=== PATIENT | male | born 1980 | race Caucasian/White ===

== ENCOUNTER 2017-10-06 22:50 | Emergency (ER) | payer MEDICAID ==
[2017-10-06 23:35] VITALS: BP 121/83; PULSE 82; TEMP 98.5; O2SAT 98
[2017-10-07] MEDS ORDERED: Fluorescein 1 mg Ophthalmic Strip ONE (00:31)
[2017-10-07] MEDS ORDERED: Tobramycin 0.3% OPH OINT OD STA (01:04)
[2017-10-07] MEDS ORDERED: Tobramycin 0.3% OPH OINT ONE (01:06)
--- NOTE | 2017-10-07 01:06 | C.PDOC ---
History Of Present Illness 37 year old male presents to the ED c/o pain and redness to his right eye. Patient also reports moderate itching and swelling to his right eye. Patient states the he tried to remove his contact lens from his right eye 3 days ago but is unsure if the lens fell out of his eye or if it still present. Patient denies headache, nausea, vomit, blurry vision, trauma, injury, fall. Time Seen by Provider: 10/06/17 23:42 Chief Complaint (Nursing): Eye Problem History Per: Patient History/Exam Limitations: no limitations Onset/Duration Of Symptoms: Days (3) Current Symptoms Are (Timing): Still Present Quality: "Pain" Wears Contact Lens?: Yes Associated Symptoms: Pain, Swelling Recent travel outside of the [place]: No Additional History Per: Patient Past Medical History Reviewed: Historical Data, Nursing Documentation, Vital Signs Vital Signs: Last Vital Signs Temp 98.5 F 10/06/17 23:32 Pulse 82 10/06/17 23:32 Resp 20 10/07/17 01:11 BP 121/83 10/06/17 23:32 Pulse Ox 98 10/07/17 03:09 - Medical History PMH: No Chronic Diseases Denies: Chronic Kidney Disease Surgical History: No Surg Hx Family History: States: Unknown Family Hx - Social History Hx Alcohol Use: No Hx Substance Use: No - Immunization History Hx Tetanus Toxoid Vaccination: No Hx Influenza Vaccination: No Hx Pneumococcal Vaccination: No Review Of Systems Constitutional: Negative for: Fever, Chills Eyes: Positive for: Pain, Eyelid Inflammation, Redness Gastrointestinal: Negative for: Vomiting Neurological: Negative for: Headache, Dizziness Physical Exam - Physical Exam Appears: Non-toxic, No Acute Distress Skin: Normal Color, Warm, Dry Head: Atraumatic, Normacephalic Eye(s): bilateral: PERRL, EOMI, right: Eyelid Inflammation, Other (swelling periorbital area, moderate ciliary injection, conjuctival edema. corneal abrasion direclty over right pupil and conjuctival abrasion to mid lower conjuctival border) Ear(s): Bilateral: Normal Nose: No Discharge Oral Mucosa: Moist Throat: Normal, No Erythema, No Exudate Neck: Normal ROM, Supple Extremity: Normal ROM, No Tenderness, No Swelling Neurological/Psych: Oriented x3, Normal Speech Gait: Steady ED Course And Treatment O2 Sat by Pulse Oximetry: 98 (ON RA) Pulse Ox Interpretation: Normal Progress Note: Patient was applied tobradex solution and was given to him to apply and be used twice. Patient was advised to follow up with opthalmologist. Disposition Counseled Patient/Family Regarding: Diagnosis, Need For Followup, Rx Given - Disposition Referrals: Matthew Gann [Staff Provider] - Disposition: HOME/ ROUTINE Disposition Time: 01:05 Condition: STABLE Additional Instructions: Apply ointment to right eye as directed ( 2x daily for 5 days Follwo up with Eye doctor Return to ER if worse Prescriptions: Cetirizine HCl [Zyrtec] 10 mg PO DAILY #20 capsule Instructions: Corneal Abrasion (DC) Forms: [employer] (Serbian), School Excuse - Clinical Impression Clinical Impression: Corneal abrasion - PA / SCHOOL COOK / Resident Statement MD/DO has reviewed & agrees with the documentation as recorded. - Scribe Statement The provider has reviewed the documentation as recorded by the Scribe Merrick Mcmillan All medical record entries made by the Scribe were at my direction and personally dictated by me. I have reviewed the chart and agree that the record accurately reflects my personal performance of the history, physical exam, medical decision making, and the department course for this patient. I have also personally directed, reviewed, and agree with the discharge instructions and disposition.
[2017-10-07 01:11] VITALS: RESP 20
== END 2017-10-07 01:10 | disposition home or self-care (01) ==
LOC: C.ER 22:50
DX: S05.01XA Injury of conjunctiva and corneal abrasion without foreign body, right eye, initial encounter (principal); X58.XXXA Exposure to other specified factors, initial encounter

== ENCOUNTER 2017-11-20 10:00 | Emergency (ER) | payer MEDICAID ==
[2017-11-20] MEDS ORDERED: Tetanus/Diphtheria Toxoids 0.5 ml Syringe IM ONE (10:22)
--- NOTE | 2017-11-20 10:22 | C.PDOC ---
History Of Present Illness 37 year old male BIBA to ED whose history is limited due to clinical condition. Per EMS, EMS was called by patients family due to gross alcohol intoxication. Per EMS, "the mother did not want to deal with him anymore." Per EMS, patient was witnessed to be walking outside the house. 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 ( Marta Sanderson) History Per: EMS History/Exam Limitations: clinical condition Onset/Duration Of Symptoms: Hrs Current Symptoms Are (Timing): Still Present Modifying Factor(s): Alcohol Time Seen by Provider: 11/20/17 10:08 Chief Complaint (Nursing): Substance Abuse Past Medical History Reviewed: Historical Data, Nursing Documentation, Vital Signs - Medical History PMH: Denies: Chronic Kidney Disease Surgical History: No Surg Hx Family History: States: No Known Family Hx - Social History Hx Alcohol Use: Yes Hx Substance Use: No - Immunization History Hx Tetanus Toxoid Vaccination: No Hx Influenza Vaccination: No Hx Pneumococcal Vaccination: No Vital Signs: Last Vital Signs Temp 98.4 F 11/20/17 10:11 Pulse 104 H 11/20/17 13:51 Resp 16 11/20/17 13:51 BP 120/71 11/20/17 13:51 Pulse Ox 96 11/20/17 13:51 Review Of Systems Review Of Systems: ROS cannot be obtained secondary to pt's inabilty to answer questions. Physical Exam - Physical Exam Appears: Toxic, No Acute Distress Skin: Warm Head: Normacephalic, Abrasion (on top of scalp) Eye(s): bilateral: Normal Inspection Nose: Normal, Other (dry blood on nose and mouth ) Oral Mucosa: Moist Neck: Supple Chest: Symmetrical Cardiovascular: Rhythm Regular Respiratory: Normal Breath Sounds Gastrointestinal/Abdominal: Soft, No Tenderness Extremity: Other (No gross deformity. Abrasion to right elbow. ) Neurological/Psych: Other (Gross alcohol intoxication. Focal response to pain stimulus. ) ED Course And Treatment O2 Sat by Pulse Oximetry: 97 (RA) Pulse Ox Interpretation: Normal - CT Scan/US head Other Rad Studies (CT/US): Read By Radiologist, Radiology Report Reviewed CT/US Interpretation: FINDINGS: Study is limited by motion artifact. HEMORRHAGE: No acute parenchymal, subarachnoid or extra-axial hemorrhage. BRAIN: There appears to be some very minimal low-attenuation periventricular white matter changes nonspecific. No obvious parenchymal nor extra-axial mass or collection. Ventricular and sulcal size are within range of normal for this patient's stated age. VENTRICLES: No obstructive hydrocephalus. CALVARIUM: Calvarium intact however there is mild right frontal scalp swelling extends superiorly of to near the vertex. There is also mild right periorbital/ supraorbital soft tissue swelling. Age-indeterminate anterior nasal bone fracture. PARANASAL SINUSES: Unremarkable as visualized. No significant inflammatory changes. MASTOID AIR CELLS: Unremarkable as visualized. No inflammatory changes. OTHER FINDINGS: None. IMPRESSION: Limited motion degraded study. No acute intracranial hemorrhage. Suspect minimal chronic periventricular white matter low-attenuation changes nonspecific. Mild right periorbital soft tissue swelling extending superiorly into the frontal scalp. Age-indeterminate right-sided anterior nasal bone fracture. Progress - Data Reviewed Data Reviewed: Diagnostic imaging, Old records - Re-Evaluation Re-evaluation Note: Mother at bedside states patient does weekend drinking. Usually has frequent falls when he drinks. Patient PE unchanged. 11/20/17 11:23 (Marta Sanderson) Medical Decision Making Medical Decision Making: Impression: Alcohol intoxication with multiple superficial injury to head. Plan: * CT cervical spine * CT Head * Tenivac * Sobriety (Marta Sanderson) Disposition Counseled Patient/Family Regarding: Studies Performed, Diagnosis - Disposition Disposition Time: 13:00 - Disposition Condition: STABLE Forms: [employer] (Macanese) - Clinical Impression Clinical Impression: Minor head injury, Multiple abrasions, Alcohol intoxication - Scribe Statement The provider has reviewed the documentation as recorded by the Scribe - Scribe Statement Fernando Foley (Marta Sanderson) Provider Attestation: All medical record entries made by the Scribe were at my direction and personally dictated by me. I have reviewed the chart and agree that the record accurately reflects my personal performance of the history, physical exam, medical decision making, and the department course for this patient. I have also personally directed, reviewed, and agree with the discharge instructions and disposition. (Marta Sanderson) Physician Patient Turnover Patient Signed Over To: Latasha العراقي Handoff Comments: FU SOBRIETY, DISPO Addendum Addendum: 11/20/17 14:02 Patient sleeping comfortably, arousable to verbal stimuli. Pending sobriety. ( Latasha العراقي)
[2017-11-20] MEDS ORDERED: Tdap Vaccine 0.5 ml Vial (10-64 yrs) IM ONE (10:34)
--- NOTE | 2017-11-20 11:46 | CT ---
Date of service: 11/20/2017 PROCEDURE: CT HEAD WITHOUT CONTRAST. HISTORY: trauma COMPARISON: None available. TECHNIQUE: Axial computed tomography images were obtained through the head/brain without intravenous contrast. Radiation dose: Total exam DLP = 1905.03 mGy-cm. This CT exam was performed using one or more of the following dose reduction techniques: Automated exposure control, adjustment of the mA and/or kV according to patient size, and/or use of iterative reconstruction technique. FINDINGS: Study is limited by motion artifact HEMORRHAGE: No acute parenchymal, subarachnoid or extra-axial hemorrhage. BRAIN: There appears to be some very minimal low-attenuation periventricular white matter changes nonspecific. No obvious parenchymal nor extra-axial mass or collection. Ventricular and sulcal size are within range of normal for this patient's stated age VENTRICLES: No obstructive hydrocephalus. CALVARIUM: Calvarium intact however there is mild right frontal scalp swelling extends superiorly of to near the vertex. There is also mild right periorbital/supraorbital soft tissue swelling. Age-indeterminate anterior nasal bone fracture. PARANASAL SINUSES: Unremarkable as visualized. No significant inflammatory changes. MASTOID AIR CELLS: Unremarkable as visualized. No inflammatory changes. OTHER FINDINGS: None. IMPRESSION: Limited motion degraded study. No acute intracranial hemorrhage. Suspect minimal chronic periventricular white matter low-attenuation changes nonspecific. Mild right periorbital soft tissue swelling extending superiorly into the frontal scalp. Age-indeterminate right-sided anterior nasal bone fracture.
--- NOTE | 2017-11-20 11:53 | CT ---
Date of service: 11/20/2017 PROCEDURE: CT Cervical Spine without contrast HISTORY: TRAUMA COMPARISON: None available. TECHNIQUE: Axial computed tomography images were obtained of the cervical spine without the use of intravenous contrast. Coronal and sagittal reformatted images were created and reviewed. Radiation dose: Total exam DLP = 609.88 mGy-cm. This CT exam was performed using one or more of the following dose reduction techniques: Automated exposure control, adjustment of the mA and/or kV according to patient size, and/or use of iterative reconstruction technique. FINDINGS: VERTEBRAE: No fracture. Normal alignment. No destructive bony lesion. DISCS/SPINAL CANAL/NEURAL FORAMINA: Mild degenerative spondylosis seen at the C5-C6 level. Changes include disc space narrowing with mild minor endplate eburnation and small central and bilateral (left slightly larger than right) disc ridge complex that compresses the ventral surface of the thecal sac and spinal cord more so on the left side. The uncovertebral joints are mildly hypertrophic as well with bilateral foraminal narrowing. The the Minimal degenerative spondylosis noted at the C6-C7 level without significant canal nor foraminal compromise. PARASPINAL SOFT TISSUES: Unremarkable. OTHER FINDINGS: None. IMPRESSION: No acute fractures. Mild degenerative spondylosis most notably affecting the C5-C6 level as detailed above.
[2017-11-20 13:51] VITALS: RESP 16
[2017-11-20 15:07] VITALS: BP 125/87; PULSE 110; TEMP 98.3; O2SAT 97
== END 2017-11-20 15:16 | disposition home or self-care (01) ==
LOC: C.ER 10:00
DX: F10.129 Alcohol abuse with intoxication, unspecified (principal); Y90.9 Presence of alcohol in blood, level not specified; S00.01XA Abrasion of scalp, initial encounter; X58.XXXA Exposure to other specified factors, initial encounter

== ENCOUNTER 2017-11-22 01:13 | Emergency (ER) | payer MEDICAID ==
[2017-11-22 01:25] VITALS: RESP 20; TEMP 98.5
--- NOTE | 2017-11-22 03:06 | C.PDOC ---
History Of Present Illness 37 year old male presents to the ER with a complaint of right lower leg pain for the past 2 days. Patient states he fell 2 days ago and seen in the ER, he was found intoxicated and had a CT head and c-spine that were negative. Patient reports he began feeling the pain to the right ankle after being discharged and sobered up. Denies weakness or numbness. Time Seen by Provider: 11/22/17 01:25 Chief Complaint (Nursing): Lower Extremity Problem/Injury History Per: Patient History/Exam Limitations: no limitations Onset/Duration Of Symptoms: Days Current Symptoms Are (Timing): Still Present Recent travel outside of the [place]: No - Ankle/Foot Description Of Injury: Fell Past Medical History Reviewed: Historical Data, Nursing Documentation, Vital Signs Vital Signs: Last Vital Signs Temp 98.5 F 11/22/17 01:22 Pulse 88 11/22/17 03:47 Resp 20 11/22/17 03:47 BP 132/78 11/22/17 03:47 Pulse Ox 98 11/22/17 03:58 - Medical History PMH: Denies: Chronic Kidney Disease Family History: States: Unknown Family Hx - Social History Hx Alcohol Use: Yes Hx Substance Use: No - Immunization History Hx Tetanus Toxoid Vaccination: No Hx Influenza Vaccination: No Hx Pneumococcal Vaccination: No Review Of Systems Musculoskeletal: Positive for: Leg Pain Skin: Positive for: Other (Abrasion) Neurological: Negative for: Weakness, Numbness Physical Exam - Physical Exam Appears: Non-toxic Skin: Warm, Dry Head: Atraumatic, Normacephalic Eye(s): bilateral: Normal Inspection Extremity: Capillary Refill (<2 seconds), Other (Abrasion to right knee, no swelling tenderness or deformity. Tenderness to right lateral malleolus.) Pulses: Left Dorsalis Pedis: Normal, Right Dorsalis Pedis: Normal Neurological/Psych: Oriented x3, Normal Speech, Normal Motor, Normal Sensation Gait: Steady ED Course And Treatment O2 Sat by Pulse Oximetry: 98 (Room air) Pulse Ox Interpretation: Normal - Other Rad Right ankle x-ray X-Ray: Interpreted by Me, Viewed By Me Interpretation: Nondisplaced fracture of the distal fibula Progress Note: Motrin administered for pain. Right ankle x-ray ordered, results showed positive fracture. Patient placed in posterior leg splint by CP and checked by me, neurovascular intact post splint. Pt was given crutches with instructions, and advised to follow up with ortho for further evaluation. Disposition Counseled Patient/Family Regarding: Diagnosis, Need For Followup, Rx Given - Disposition Referrals: Demetris Singh III, MD [Staff Provider] - [facility] [Outside] Disposition: HOME/ ROUTINE Disposition Time: 03:01 Condition: STABLE Additional Instructions: Leg elevation/ Keep splint until clinic follow up Take motrin for pain Return to ER if worse Prescriptions: Ibuprofen [Motrin] 600 mg PO Q6H #20 tab Instructions: Ankle Fracture (DC) Forms: [employer] (Cape Verdean) - Clinical Impression Clinical Impression: Closed left ankle fracture - PA / [employer] / Resident Statement MD/DO has reviewed & agrees with the documentation as recorded. - Scribe Statement The provider has reviewed the documentation as recorded by the Scribjoão Logan All medical record entries made by the Scribjoão were at my direction and personally dictated by me. I have reviewed the chart and agree that the record accurately reflects my personal performance of the history, physical exam, medical decision making, and the department course for this patient. I have also personally directed, reviewed, and agree with the discharge instructions and disposition.
[2017-11-22 03:50] VITALS: BP 132/78; PULSE 88
[2017-11-22 03:53] VITALS: O2SAT 98
--- NOTE | 2017-11-22 09:30 | RAD ---
Date of service: 11/22/2017 PROCEDURE: Right Ankle Radiographs. HISTORY: pain, fall COMPARISON: None FINDINGS: BONES: There is a oblique nondisplaced fracture traversing the distal right fibular diametaphysis. . Slight widening of the medial aspect of the ankle mortise. JOINTS: Normal. No osteoarthritis.. Talar dome intact SOFT TISSUES: Significant soft tissue swelling over the lateral and to a [id number] medial malleolus. There is also joint effusion. OTHER FINDINGS: None. IMPRESSION: Oblique nondisplaced fracture traversing the distal right fibula diametaphysis with slight widening of the ankle mortise. There is significant medial and [id number] lateral soft tissue swelling. Note that this report was placed in PA review folder for followup.
== END 2017-11-22 03:46 | disposition home or self-care (01) ==
LOC: SUPCPDRO 01:13 → C.ER 01:13
DX: S82.831A Other fracture of upper and lower end of right fibula, initial encounter for closed fracture (principal); W19.XXXA Unspecified fall, initial encounter

== ENCOUNTER 2018-03-11 22:00 | Emergency (ER) | payer MEDICAID ==
[2018-03-11 22:19] VITALS: BP 134/82; PULSE 82; RESP 16; TEMP 97.2; O2SAT 97
--- NOTE | 2018-03-11 22:53 | C.PDOC ---
History Of Present Illness 37 y/o male brought to the ER by EMS for loitering at the park and possible alcohol intoxication. Time Seen by Provider: 03/11/18 22:02 Chief Complaint (Nursing): Substance Abuse History Per: EMS History/Exam Limitations: intoxication Onset/Duration Of Symptoms: Unknown Current Symptoms Are (Timing): Still Present Modifying Factor(s): Alcohol Severity: Mild Past Medical History Reviewed: Historical Data, Nursing Documentation, Vital Signs Vital Signs: Last Vital Signs Temp 97.2 F L 03/11/18 22:15 Pulse 82 03/11/18 22:15 Resp 16 03/11/18 22:15 BP 134/82 03/11/18 22:15 Pulse Ox 97 03/11/18 22:15 - Medical History PMH: No Chronic Diseases Family History: States: No Known Family Hx - Social History Hx Alcohol Use: Yes Hx Substance Use: Yes - Immunization History Hx Tetanus Toxoid Vaccination: No Hx Influenza Vaccination: No Hx Pneumococcal Vaccination: No Review Of Systems Review Of Systems: ROS cannot be obtained secondary to pt's inabilty to answer questions. Physical Exam - Physical Exam Appears: Non-toxic, Unkempt, Other (mildly intoxicated) Skin: Warm, Dry Head: Atraumatic, Normacephalic Eye(s): bilateral: Normal Inspection, PERRL, EOMI Oral Mucosa: Moist Cardiovascular: Rhythm Regular Respiratory: Normal Breath Sounds, No Rales, No Rhonchi, No Wheezing Gastrointestinal/Abdominal: Normal Exam, Bowel Sounds, Soft, No Tenderness Extremity: Bilateral: Atraumatic, Normal Color And Temperature, Normal ROM Neurological/Psych: Oriented x3 ED Course And Treatment O2 Sat by Pulse Oximetry: 97 (RA) Pulse Ox Interpretation: Normal Progress Note: Accucheck ordered and reviewed. Patient pending sobriety. Reevaluation Time: 23:40 Reassessment Condition: Improved (Patient is currently AAOx3, ambulating nor pebbles in the ED and is clinically sober at this time. Will discharge.) Disposition Counseled Patient/Family Regarding: Studies Performed, Diagnosis, Need For F ollowup - Disposition Referrals: [facility] [Outside] Disposition: HOME/ ROUTINE Disposition Time: 23:40 Condition: STABLE Instructions: Alcohol Use - When Is Drinking a Problem? Print Language: JAPANESE - Clinical Impression Clinical Impression: Alcohol intoxication - Scribe Statement The provider has reviewed the documentation as recorded by the Kirill Wei Do Provider Attestation: All medical record entries made by the Kirill were at my direction and personally dictated by me. I have reviewed the chart and agree that the record accurately reflects my personal performance of the history, physical exam, medical decision making, and the department course for this patient. I have also personally directed, reviewed, and agree with the discharge instructions and disposition.
== END 2018-03-11 23:42 | disposition home or self-care (01) ==
LOC: C.ER 22:00
DX: F10.129 Alcohol abuse with intoxication, unspecified (principal); Y90.9 Presence of alcohol in blood, level not specified

== ENCOUNTER 2018-04-11 20:01 | Emergency (ER) | payer MEDICAID ==
[2018-04-11 20:07] VITALS: O2SAT 97
--- NOTE | 2018-04-11 20:43 | C.PDOC ---
History Of Present Illness Patient is a 37 year old male dhiraj, with a PMHx of alcohol abuse, who presents to the ED for public intoxication. As per EMS, patient was found laying on the sidewalk. Patient admits to drinking today. Patient denies any SI/HI, hallucinations, CP, SOB, injury, or other medical complaints at the present moment. Time Seen by Provider: 04/11/18 20:20 Chief Complaint (Nursing): Substance Abuse History Per: Patient, EMS History/Exam Limitations: intoxication Suicide/Self Injury Attempted (Context): None Modifying Factor(s): Alcohol Associated Symptoms: denies: Suicidal Thoughts, Suicidal Plan Involuntary Hold By: None Recent travel outside of the [place]: No Additional History Per: Patient, EMS Past Medical History Reviewed: Historical Data, Nursing Documentation, Vital Signs Vital Signs: Last Vital Signs Temp 97.5 F L 04/11/18 20:07 Pulse 112 H 04/11/18 20:07 Resp BP 144/95 H 04/11/18 20:07 Pulse Ox 97 04/11/18 20:07 - Medical History PMH: No Chronic Diseases Denies: Chronic Kidney Disease Surgical History: No Surg Hx Family History: States: Unknown Family Hx - Social History Hx Alcohol Use: Yes Hx Substance Use: Yes - Immunization History Hx Tetanus Toxoid Vaccination: No Hx Influenza Vaccination: No Hx Pneumococcal Vaccination: No Review Of Systems Cardiovascular: Negative for: Chest Pain Respiratory: Negative for: Shortness of Breath Psych: Negative for: Suicidal ideation, Other (homicidal ideation, hallucinations ) Physical Exam - Physical Exam Appears: Non-toxic, No Acute Distress, Other (Appears older than stated. Alcohol on breath. Cooperative and calm. ) Skin: Normal Color, Warm, Dry Head: Atraumatic, Normacephalic Oral Mucosa: Moist Neck: Normal ROM, Supple Chest: Symmetrical, No Deformity Cardiovascular: Rhythm Regular, No Murmur Respiratory: Normal Breath Sounds, No Rales, No Rhonchi, No Wheezing Gastrointestinal/Abdominal: Soft, No Tenderness, No Guarding, No Rebound Extremity: Normal ROM Neurological/Psych: Oriented x3, Normal Speech, Normal Cognition ED Course And Treatment O2 Sat by Pulse Oximetry: 97 (on RA) Pulse Ox Interpretation: Normal Reevaluation Time: 23:30 Reassessment Condition: Improved (clincally sober, wants to walk home 1/2 block) Medical Decision Making Medical Decision Making: Plan: Glucose POC ordered and reviewed. Disposition Doctor Will See Patient In The: Office Counseled Patient/Family Regarding: Studies Performed, Diagnosis - Disposition Disposition: HOME/ ROUTINE Disposition Time: 23:30 Condition: GOOD Instructions: Alcohol Abuse and Alcoholism (DC) Forms: [employer] (Bulgarian) - Clinical Impression Clinical Impression: Alcohol abuse - Scribe Statement The provider has reviewed the documentation as recorded by the Mariluibjoão Navarrete All medical record entries made by the Kirill were at my direction and personally dictated by me. I have reviewed the chart and agree that the record accurately reflects my personal performance of the history, physical exam, medical decision making, and the department course for this patient. I have also personally directed, reviewed, and agree with the discharge instructions and disposition.
[2018-04-11 23:26] VITALS: BP 158/91; PULSE 91; RESP 16; TEMP 97.9
== END 2018-04-11 23:46 | disposition home or self-care (01) ==
LOC: C.ER 20:01
DX: F10.10 Alcohol abuse, uncomplicated (principal); Y90.9 Presence of alcohol in blood, level not specified

== ENCOUNTER 2018-04-14 10:05 | Emergency (ER) | payer MEDICAID ==
[2018-04-14 10:13] VITALS: BMI 26.6
[2018-04-14 10:19] VITALS: RESP 18
--- NOTE | 2018-04-14 11:34 | C.PDOC ---
History Of Present Illness 37 y/o male presents to the ER complaining of right ankle pain s/p injury 4 days ago. Patient states that he missed a step going down some stairs and twisted his right ankle which caused immediate pain to the medial and lateral aspects of the ankle. Patient reports that he has difficulty walking since the injury. He notes that he has history of previous right ankle injury in November 2017. At the time, he was evaluated by and was diagnosed with a lateral malleolus fracture. He has been doing physical therapy with good results multiple times a week. Since this new injury, he has been using a cane and a orthopedic boot which he was provided in November. He is also complaining of mild right knee pain. Denies having weakness, numbness, parasthesias, or open wounds. Time Seen by Provider: 04/14/18 11:13 Chief Complaint (Nursing): Lower Extremity Problem/Injury History Per: Patient History/Exam Limitations: no limitations Onset/Duration Of Symptoms: Days Current Symptoms Are (Timing): Still Present Severity: Moderate Past Medical History Reviewed: Historical Data, Nursing Documentation, Vital Signs Vital Signs: Last Vital Signs Temp 98.8 F 04/14/18 10:14 Pulse 86 04/14/18 10:14 Resp 18 04/14/18 10:14 BP 132/81 04/14/18 10:14 Pulse Ox 97 04/14/18 10:14 - Medical History PMH: No Chronic Diseases Denies: Chronic Kidney Disease Other Surgeries: Hx of surgeries Family History: States: No Known Family Hx - Social History Hx Alcohol Use: Yes Hx Substance Use: Yes - Immunization History Hx Tetanus Toxoid Vaccination: No Hx Influenza Vaccination: No Hx Pneumococcal Vaccination: No Review Of Systems Except As Marked, All Systems Reviewed And Found Negative. Constitutional: Negative for: Fever, Chills Eyes: Negative for: Vision Change Cardiovascular: Negative for: Chest Pain, Palpitations, Light Headedness Respiratory: Negative for: Cough, Shortness of Breath Gastrointestinal: Negative for: Nausea, Vomiting, Abdominal Pain Musculoskeletal: Positive for: Other (right knee pain, right ankle pain). Negative for: Neck Pain, Back Pain Skin: Negative for: Rash, Bruising Neurological: Negative for: Weakness, Numbness, Headache, Dizziness Physical Exam - Physical Exam Appears: Well, Non-toxic, No Acute Distress Skin: Normal Color, Warm, Dry, Other (no bruising to right knee and right ankle) Head: Atraumatic, Normacephalic Eye(s): bilateral: Normal Inspection, PERRL, EOMI Ear(s): Bilateral: Normal Nose: Normal Oral Mucosa: Moist Neck: Normal, Normal ROM, Supple Chest: Symmetrical Cardiovascular: Rhythm Regular Respiratory: Normal Breath Sounds, No Rales, No Rhonchi, No Wheezing Extremity: Normal ROM, Tenderness (tenderness over medial aspects of right ankle and lateral joint line of right knee), Capillary Refill (<2s), Swelling (swelling to lateral and medial aspects of right ankle), Other (Sensation, Pulses, ROM, and Strength intact and normal bilaterally) Extremity: Left: Atraumatic, Right: Bony Point Tenderness (medial malleolus), Painful To Bear Weight, Bilateral: Normal Color And Temperature, Normal ROM Pulses: Left Dorsalis Pedis: Normal, Right Dorsalis Pedis: Normal Neurological/Psych: Oriented x3, Normal Speech, Normal Motor, Normal Sensation Gait: With Assistance (cane, orthopedic boot) ED Course And Treatment O2 Sat by Pulse Oximetry: 97 (RA) Pulse Ox Interpretation: Normal - Other Rad X-Ray-Right Knee X-Ray: Viewed By Me, Read By Radiologist Interpretation: Date of service: 04/14/2018. PROCEDURE: Right Knee Radiographs. HISTORY: trauma, r/o fracture. COMPARISON: None. FINDINGS: BONES: Normal. No fracture. JOINTS: Normal. No osteoarthritis. JOINT EFFUSION: None. OTHER FINDINGS: None. IMPRESSION: Normal radiographs of the right knee. X-Ray-Right Ankle X-Ray: Viewed By Me, Read By Radiologist Interpretation: Date of service: 04/14/2018. PROCEDURE: Right Ankle Radiographs. HISTORY: previous lateral mal fx, new injury with pain b/l. CO MPARISON: None available. FINDINGS: BONES: Fractures through the medial malleolar region and posterior malleolar region distal right tibia. JOINTS: Normal. No osteoarthritis. Ankle mortise maintained. Talar dome intact. SOFT TISSUES: Soft tissue swelling attests to the acuity of the fracture. OTHER FINDINGS: None. IMPRESSION: Acute fractures of distal right tibia. No visible distal fibular fracture displayed extensive soft tissue swelling. Medical Decision Making Medical Decision Making: Plan: --X-Ray-Right Knee --X-Ray-Right Ankle --Ibuprofen Patient refusing pain medications offered. Right knee XR negative for acute fracture or dislocation. Right ankle XR significant for acute transverse medial malleolus fracture and old distal fibular fracture with callus formation. 1200 Podiatry resident luz elena, states they will come to ED to evaluate patient 1230 Podiatry resident Mary examined and evaluated patient at bedside. States patient is refusing posterior splint. Patient placed in Delarosa compression and placed in walking boot. Mary states that patient can use his home cane for ambulation, and that crutches are unnecessary as patient does not want them. Will advise patient to followup per podiatry's recommendations with Dr. Tate. He is to be NWB on extremity. Patient verbalized understanding of discussion and states he will f ollowup as instructed. Patient refusing pain medication at this time. Diagnostic testing results and plan of care discussed with patient. Strict instructions given regarding prescription use, importance of followup, and signs/symptoms to return to ER including numbness, paresthesias, weakness, worsening pain, or any other new/worsening symptoms. Pt verbalized understanding of discussion. Patient is A&Ox3, ambulating with steady gait, with vital signs stable for discharge. Disposition - Disposition Referrals: Hernán Tate, [facility] [Staff Provider] - Disposition: HOME/ ROUTINE Disposition Time: 12:40 Condition: IMPROVED Additional Instructions: Followup with Dr. Tate within the week Ibuprofen/Tylenol for pain Weat walking boot and use cane when ambulating, as per podiatry Return to ER with any new/worsening symptoms Instructions: Ankle Fracture Forms: [facility] (Solomon Islander), Work Excuse - Clinical Impression Clinical Impression: Ankle fracture - PA / SAP DIRECTOR / Resident Statement MD/DO has reviewed & agrees with the documentation as recorded. - Scribe Statement The provider has reviewed the documentation as recorded by the Kirill Brown Provider Attestation All medical record entries made by the Kirill were at my direction and personal ly dictated by me. I have reviewed the chart and agree that the record accurately reflects my personal performance of the history, physical exam, medical decision making, and the department course for this patient. I have also personally directed, reviewed, and agree with the discharge instructions and disposition.
[2018-04-14 13:03] VITALS: BP 130/83; PULSE 84; TEMP 99.1
[2018-04-14 13:12] VITALS: O2SAT 97
--- NOTE | 2018-04-14 13:53 | RAD ---
Date of service: 04/14/2018 PROCEDURE: Right Knee Radiographs. HISTORY: trauma, r/o fracture COMPARISON: None. FINDINGS: BONES: Normal. No fracture. JOINTS: Normal. No osteoarthritis. JOINT EFFUSION: None. OTHER FINDINGS: None. IMPRESSION: Normal radiographs of the right knee.
--- NOTE | 2018-04-14 13:54 | RAD ---
Date of service: 04/14/2018 PROCEDURE: Right Ankle Radiographs. HISTORY: previous lateral mal fx, new injury with pain b/l COMPARISON: None available. FINDINGS: BONES: Fractures through the medial malleolar region and posterior malleolar region distal right tibia. JOINTS: Normal. No osteoarthritis. Ankle mortise maintained. Talar dome intact SOFT TISSUES: Soft tissue swelling attests to the acuity of the fracture. OTHER FINDINGS: None. IMPRESSION: Acute fractures of distal right tibia. No visible distal fibular fracture displayed extensive soft tissue swelling.
--- NOTE | 2018-04-14 14:37 | CP.PCM.CON ---
History of Present Illness - History of Present Illness History of Present Illness: Podiatry Consult Note - Dr. Tate 37 y/o male with PMHx of alcohol abuse seen in the ED today for right ankle pain s/p twisting injury earlier this week. He states he has a history of a fibula fracture which he has been following Dr. Tate for. States he was in the boot for the last few months and the pain went away to the right ankle a couple months ago. States this new injury is now causing him pain to the inside of the ankle and slightly to the back of the ankle. Denies tingling, numbness or burning in the right lower extremity. Denies F/C/N/V/CP/SOB PSH: denies All: NKDA SocHx: social EtOH use; denies cigarette or illicit drug use Review of Systems - Review of Systems All systems: reviewed and no additional remarkable complaints except (per HPI) Past Patient History - Infectious Disease Hx of Infectious Diseases: None - Past Social History Smoking Status: Never Smoked - CARDIAC Hx Cardiac Disorders: No - PULMONARY Hx Respiratory Disorders: No - NEUROLOGICAL Hx Neurological Disorder: No - HEENT Hx HEENT Problems: No - RENAL Hx Chronic Kidney Disease: No - ENDOCRINE/METABOLIC Hx Endocrine Disorders: No - HEMATOLOGICAL/ONCOLOGICAL Hx Blood Disorders: No - INTEGUMENTARY Hx Dermatological Problems: No - MUSCULOSKELETAL/RHEUMATOLOGICAL Hx Musculoskeletal Disorders: No - GASTROINTESTINAL Hx Gastrointestinal Disorders: No - GENITOURINARY/GYNECOLOGICAL Hx Genitourinary Disorders: No - PSYCHIATRIC Hx Substance Use: Yes - SURGICAL HISTORY Hx Surgeries: Yes Hx Musculoskeletal Surgery: Yes (RIGHT SHOULDER) - ANESTHESIA Hx Anesthesia: Yes Hx Anesthesia Reactions: No Meds Allergies/Adverse Reactions: Allergies Allergy/AdvReac Type Severity Reaction Status Date / Time No Known Allergies Allergy Verified 04/14/18 10:13 Physical Exam - Constitutional Appears: Well, Non-toxic, No Acute Distress - Extremities Exam Additional comments: Right lower extremity exam: Vasc: DP/PT pulses palpable 2/4. Temperature gradient warm to cool. CFT < 3 sec to all digits. Mild pedal edema noted about the right ankle Derm: no open lesions, no erythema, no ecchymosis Neuro: protective and gross sensation intact Ortho: mild-moderate tenderness to palpation of medial malleolus and posterior aspect of ankle joint. patient able to perform active ankle joint dorsiflexion and plantarflexion, limited secondary to guarding. - Neurological Exam Neurological exam: Alert, Oriented x3 - Psychiatric Exam Psychiatric exam: Normal Affect, Normal Mood Results - Vital Signs Recent Vital Signs: Last Vital Signs Temp 99.1 F 04/14/18 12:57 Pulse 84 04/14/18 12:57 Resp 18 04/14/18 12:57 BP 130/83 04/14/18 12:57 Pulse Ox 97 04/14/18 13:16 Assessment & Plan - Assessment and Plan (Free Text) Assessment: 37 y/o male with right ankle transverse medial malleolar fracture Plan Patient seen and evaluated in ED Discussed plan with Dr. Tate Xrays of R ankle reveal transverse medial malleolar fracture; old right fibula fracture, healed with posterior bony callus formation Patient refusing posterior splint at this time - brings CAM boot on visit Patient dressed with Delarosa compression and CAM boot applied Patient advised to be NWB to the right lower extremity at all times Patient to follow up with Dr. Tate within 1 week Thank you for this consult
== END 2018-04-14 12:57 | disposition home or self-care (01) ==
LOC: C.ER 10:05
DX: S82.51XA Displaced fracture of medial malleolus of right tibia, initial encounter for closed fracture (principal); X50.9XXA Other and unspecified overexertion or strenuous movements or postures, initial encounter

== ENCOUNTER 2018-04-22 08:16 | Outpatient (CLI) | payer MEDICAID | END 2018-04-22 08:17 | disposition home or self-care (01) | LOC: C.PAT 08:16 | DX: Z01.818 Encounter for other preprocedural examination (principal) ==

== ENCOUNTER 2018-04-27 19:55 | Emergency (ER) | payer MEDICAID ==
[2018-04-27 19:56] VITALS: BMI 26.6
--- NOTE | 2018-04-27 21:41 | C.PDOC ---
History Of Present Illness 38 year old male brought in by EMS after being found on the street unconscious in the rain. Time Seen by Provider: 04/27/18 20:59 Chief Complaint (Nursing): Substance Abuse History Per: EMS History/Exam Limitations: no limitations Onset/Duration Of Symptoms: Unknown Current Symptoms Are (Timing): Still Present Modifying Factor(s): Alcohol Past Medical History Reviewed: Historical Data, Nursing Documentation, Vital Signs Vital Signs: Last Vital Signs Temp 98.0 F 04/27/18 20:13 Pulse 104 H 04/27/18 20:13 Resp 16 04/27/18 20:13 BP 143/95 H 04/27/18 20:13 Pulse Ox 95 04/27/18 20:13 - Medical History PMH: Denies: Chronic Kidney Disease Family History: States: Unknown Family Hx - Social History Hx Alcohol Use: Yes Hx Substance Use: Yes - Immunization History Hx Tetanus Toxoid Vaccination: No Hx Influenza Vaccination: No Hx Pneumococcal Vaccination: No Review Of Systems Review Of Systems: ROS cannot be obtained secondary to pt's inabilty to answer questions. Physical Exam - Physical Exam Appears: Other (Lethargic, Intoxicated) Skin: Normal Color, Warm, Dry Head: Atraumatic, Normacephalic Eye(s): bilateral: Normal Inspection, PERRL, EOMI Oral Mucosa: Moist Neck: Normal, Supple Chest: Symmetrical, No Tenderness Cardiovascular: Rhythm Regular Respiratory: Normal Breath Sounds, No Rales, No Rhonchi, No Wheezing Gastrointestinal/Abdominal: Soft, No Tenderness Pulses: Left Radial: Normal, Right Radial: Normal ED Course And Treatment - Laboratory Results Result Diagrams: 04/27/18 21:54 04/27/18 21:54 O2 Sat by Pulse Oximetry: 95 (Room air) Pulse Ox Interpretation: Normal Progress Note: Blood work ordered. 11:40 Patient continues to sleep on stretcher. Is arousable but speech continues to be slurred and unintelligible. Disposition - Disposition Disposition Time: 23:39 Condition: STABLE Forms: [facility] ([place] Citizen) - Clinical Impression Clinical Impression: Alcohol intoxication - Scribe Statement The provider has reviewed the documentation as recorded by the Scribe Sven Logan All medical record entries made by the Scribe were at my direction and personally dictated by me. I have reviewed the chart and agree that the record accurately reflects my personal performance of the history, physical exam, medical decision making, and the department course for this patient. I have also personally directed, reviewed, and agree with the discharge instructions and disposition. Physician Patient Turnover Patient Signed Over To: Ronda Faith Handoff Comments: Pending sobriety
[2018-04-27 22:03] LABS: BASO # 0.1 K/uL (0.0-0.2); EOS # 0.2 K/uL (0.0-0.7); EOS % 2.9 % (0.0-4.0); HEMOGLOBIN 14.3 g/dL (12.0-18.0); LYMPH # 2.3 K/uL (1.0-4.3); LYMPH % 40.9 % (20.0-40.0); MEAN CELL VOLUME 91.9 fL (80.0-94.0); MEAN CORPUSCULAR HEMOGLOBIN 30.3 pg (27.0-31.0); MEAN PLATELET VOLUME 7.4 fL (7.2-11.7); MONO # 0.4 K/uL (0.0-0.8); MONO % 6.8 % (0.0-10.0); NEUT # 2.7 K/uL (1.8-7.0); NEUT % 48.4 % (50.0-75.0); RBC 4.72 Mil/uL (4.40-5.90); RED CELL DISTRIBUTION WIDTH 14.9 % (11.5-14.5); WHITE BLOOD COUNT 5.6 K/uL (4.8-10.8)
[2018-04-27 22:20] LABS: ALB/GLOB RATIO 1.5 (1.0-2.1); ALBUMIN 4.7 g/dL (3.5-5.0); ALT/SGPT 85 U/L (21-72); AST/SGOT 98 U/L (17-59); BLOOD UREA NITROGEN 12 mg/dL (9-20); CALCIUM 8.6 mg/dl (8.6-10.4); GFR NON-AFRICAN AMERICAN > 60
[2018-04-28 00:07] VITALS: RESP 18
[2018-04-28 02:01] VITALS: BP 129/83; PULSE 82; TEMP 98.6; O2SAT 98
== END 2018-04-28 02:08 | disposition home or self-care (01) ==
LOC: C.ER 19:55
DX: F10.129 Alcohol abuse with intoxication, unspecified (principal)

== ENCOUNTER 2018-05-27 08:32 | Outpatient (CLI) | payer MEDICAID | END 2018-05-27 08:33 | disposition home or self-care (01) | LOC: C.RADIC 08:32 ==

== ENCOUNTER 2018-06-08 22:23 | Emergency (ER) | payer MEDICAID ==
[2018-06-08 22:23] VITALS: BMI 26.6
[2018-06-08 22:27] VITALS: TEMP 97.9
--- NOTE | 2018-06-08 23:23 | C.PDOC ---
History Of Present Illness 38 year old male brought in via EMS after being found intoxicated in public. Denies any complaints at this time. Time Seen by Provider: 06/08/18 22:29 Chief Complaint (Nursing): Substance Abuse History Per: Patient History/Exam Limitations: no limitations Onset/Duration Of Symptoms: Days Current Symptoms Are (Timing): Still Present Modifying Factor(s): Alcohol Involuntary Hold By: None Recent travel outside of the [place]: No Past Medical History Reviewed: Historical Data, Nursing Documentation, Vital Signs Vital Signs: Last Vital Signs Temp 97.9 F 06/08/18 22:27 Pulse 87 06/08/18 22:27 Resp 19 06/08/18 22:27 BP 137/71 06/08/18 22:27 Pulse Ox 98 06/08/18 22:27 - Medical History PMH: Denies: Chronic Kidney Disease Family History: States: Unknown Family Hx - Social History Hx Alcohol Use: Yes Hx Substance Use: Yes - Immunization History Hx Tetanus Toxoid Vaccination: No Hx Influenza Vaccination: No Hx Pneumococcal Vaccination: No Review Of Systems Constitutional: Negative for: Fever, Chills Cardiovascular: Negative for: Chest Pain, Palpitations Respiratory: Negative for: Cough, Shortness of Breath Gastrointestinal: Negative for: Nausea, Vomiting Neurological: Negative for: Weakness, Numbness Physical Exam - Physical Exam Appears: Non-toxic, Other (ETOH on breath, no sign of injury) Skin: Normal Color, Warm Head: Atraumatic, Normacephalic Eye(s): bilateral: Normal Inspection Oral Mucosa: Moist Neck: Normal, Supple Chest: Symmetrical, No Tenderness Cardiovascular: Rhythm Regular Respiratory: Normal Breath Sounds, No Rales, No Rhonchi, No Wheezing Gastrointestinal/Abdominal: Soft, No Tenderness Neurological/Psych: Oriented x3, Normal Speech ED Course And Treatment O2 Sat by Pulse Oximetry: 98 (Room air) Pulse Ox Interpretation: Normal Disposition - Disposition Disposition: HOME/ ROUTINE Disposition Time: 01:55 Condition: STABLE Forms: [facility] (Turkmen) - Clinical Impression Clinical Impression: Alcohol intoxication - Scribe Statement The provider has reviewed the documentation as recorded by the Scribe Sven Logan All medical record entries made by the Scribe were at my direction and personally dictated by me. I have reviewed the chart and agree that the record accurately reflects my personal performance of the history, physical exam, medical decision making, and the department course for this patient. I have also personally directed, reviewed, and agree with the discharge instructions and disposition.
[2018-06-09 01:57] VITALS: BP 136/70; PULSE 88; RESP 18
[2018-06-09 01:59] VITALS: O2SAT 98
== END 2018-06-09 01:57 | disposition home or self-care (01) ==
LOC: C.ER 22:23
DX: F10.129 Alcohol abuse with intoxication, unspecified (principal)

== ENCOUNTER 2018-07-19 21:24 | Emergency (ER) | payer MEDICAID ==
[2018-07-19 21:25] VITALS: BMI 26.6
[2018-07-19 21:28] VITALS: RESP 16
--- NOTE | 2018-07-19 21:55 | C.PDOC ---
History Of Present Illness 38 year old male is brought to the ED by EMS for public intoxication. As per EMS patient was picked up intoxicated walking on the street. Patient denies SI/HI, hallucinations, injury, fall, trauma. Time Seen by Provider: 07/19/18 21:38 Chief Complaint (Nursing): Substance Abuse History Per: Patient, EMS History/Exam Limitations: intoxication Onset/Duration Of Symptoms: Hrs Current Symptoms Are (Timing): Still Present Modifying Factor(s): Alcohol Associated Symptoms: denies: Depression, Suicidal Thoughts, Suicidal Plan Recent travel outside of the [place]: No Additional History Per: Patient, EMS Past Medical History Reviewed: Historical Data, Nursing Documentation, Vital Signs Vital Signs: Last Vital Signs Temp 98.6 F 07/19/18 21:25 Pulse 103 H 07/19/18 21:25 Resp 16 07/19/18 21:25 BP 165/94 H 07/19/18 21:25 Pulse Ox 95 07/19/18 21:25 Primary Care Provider: FAMILY PROVIDER,NO - Medical History PMH: No Chronic Diseases Denies: Chronic Kidney Disease Surgical History: No Surg Hx Family History: States: Unknown Family Hx - Social History Hx Alcohol Use: Yes Hx Substance Use: Yes - Immunization History Hx Tetanus Toxoid Vaccination: No Hx Influenza Vaccination: No Hx Pneumococcal Vaccination: No Review Of Systems Constitutional: Negative for: Fever, Chills Cardiovascular: Negative for: Chest Pain Respiratory: Negative for: Shortness of Breath Gastrointestinal: Negative for: Nausea, Vomiting, Abdominal Pain Skin: Negative for: Rash Neurological: Negative for: Weakness, Numbness Psych: Negative for: Depression, Suicidal ideation Physical Exam - Physical Exam Appears: Non-toxic, No Acute Distress Skin: Normal Color, Warm, Dry Head: Atraumatic, Normacephalic Eye(s): bilateral: Normal Inspection Neck: Normal ROM, Supple Chest: Symmetrical Cardiovascular: Rhythm Regular Respiratory: Normal Breath Sounds, No Rales, No Rhonchi, No Wheezing Gastrointestinal/Abdominal: Soft, No Tenderness, No Guarding, No Rebound Extremity: Normal ROM, No Tenderness, No Swelling Neurological/Psych: Oriented x3, Normal Speech, Normal Cognition Gait: Steady ED Course And Treatment O2 Sat by Pulse Oximetry: 95 (ON RA) Pulse Ox Interpretation: Normal Medical Decision Making Medical Decision Making: Observe until clinically sober Disposition - Disposition Referrals: [facility] [Outside] [facility] [Outside] Disposition: HOME/ ROUTINE Disposition Time: 23:00 Condition: IMPROVED Additional Instructions: GUILLERMO CRABTREE, thank you for letting us take care of you today. Your provider was Craig Malik DO and you were treated for SUBSTANCE ABUSE. The emergency medical care you received today was directed at your acute symptoms. If you were prescribed any medication, please fill it and take as directed. It may take several days for your symptoms to resolve. Return to the Emergency Department if your symptoms worsen, do not improve, or if you have any other problems. Please contact your doctor or call one of the physicians/clinics you have been referred to that are listed on the Patient Visit Information form that is included in your discharge packet. Bring any paperwork you were given at discharge with you along with any medications you are taking to your follow up visit. Our treatment cannot replace ongoing medical care by a primary care helene hsu outside of the emergency department. Thank you for allowing the [facility] team to be part of your care today. Follow up with your doctor or our clinic this week if you have any concerns. Instructions: Alcohol Use - When Is Drinking a Problem? Forms: [facility] (Upper Sorbian) - Clinical Impression Clinical Impression: Alcohol abuse - Scribe Statement The provider has reviewed the documentation as recorded by the Scribe Merrick Mcmillan All medical record entries made by the Scribe were at my direction and personally dictated by me. I have reviewed the chart and agree that the record accurately reflects my personal performance of the history, physical exam, medical decision making, and the department course for this patient. I have also personally directed, reviewed, and agree with the discharge instructions and disposition.
[2018-07-19 23:53] VITALS: BP 148/84; PULSE 88; TEMP 98.2
[2018-07-20 00:21] VITALS: O2SAT 95
== END 2018-07-19 23:53 | disposition home or self-care (01) ==
LOC: C.ER 21:24
DX: F10.10 Alcohol abuse, uncomplicated (principal)

== ENCOUNTER 2018-08-19 16:13 | Emergency (ER) | payer MEDICAID ==
[2018-08-19 16:13] VITALS: BMI 26.6
--- NOTE | 2018-08-19 16:49 | C.PDOC ---
History Of Present Illness 38 y/o male pt presents to the ER by ambulance for public intoxication. Pt has many prior evaluations. Pt states he does not know why he is here. He admits to drinking 1 pint of vodka/day. Pt is interested in detox but not today. Pt denies any injuries or complaints at this time. Time Seen by Provider: 08/19/18 16:41 Chief Complaint (Nursing): Substance Abuse History Per: Patient History/Exam Limitations: no limitations Onset/Duration Of Symptoms: Hrs Current Symptoms Are (Timing): Still Present Suicide/Self Injury Attempted (Context): None Modifying Factor(s): Alcohol Past Medical History Reviewed: Historical Data, Nursing Documentation, Vital Signs Primary Care Provider: FAMILY PROVIDER,NO Family History: States: Unknown Family Hx - Social History Hx Alcohol Use: Yes Hx Substance Use: Yes - Immunization History Hx Tetanus Toxoid Vaccination: No Hx Influenza Vaccination: No Hx Pneumococcal Vaccination: No Review Of Systems Except As Marked, All Systems Reviewed And Found Negative. Constitutional: Positive for: Other (public intoxication) Musculoskeletal: Negative for: Other (injuries) Physical Exam - Physical Exam Appears: Non-toxic, No Acute Distress, Other (average size male; junie complexion ) Skin: Warm, Dry Head: Atraumatic, Normacephalic Eye(s): bilateral: PERRL, EOMI Oral Mucosa: Moist Throat: Normal, Other (alcohol on breath ) Neck: Normal ROM, Supple Chest: Symmetrical Cardiovascular: Rhythm Regular Respiratory: Normal Breath Sounds Gastrointestinal/Abdominal: Soft, No Tenderness, Other (obese) Back: No CVA Tenderness Extremity: Normal ROM (x4) Neurological/Psych: Oriented x3, Normal Speech Medical Decision Making Medical Decision Making: alcohol abuse, chronic wants detox, "someday soon" no detox available today referrals given for opt pre-screening. Disposition Doctor Will See Patient In The: Office Counseled Patient/Family Regarding: Studies Performed, Diagnosis - Disposition Referrals: Alcoholics Anonymous [Outside] [facility] [Outside] [facility] [Outside] [facility] [Outside] [facility] [Outside] Disposition: HOME/ ROUTINE Disposition Time: 16:50 Condition: GOOD Additional Instructions: seek outpatient pre-screening for Alcohol Detox Programs Call for availability TAPER your alcohol use down little by little daily as you are able Seek AA- [facility] for alcohol abuse issues. Instructions: Alcohol Use - When Is Drinking a Problem?, Alcohol Abuse and Alcoholism (DC) Forms: [facility] (Zambian) - Clinical Impression Clinical Impression: Alcohol abuse - Scribe Statement The provider has reviewed the documentation as recorded by the Scribe Wei Do Provider Attestation: All medical record entries made by the Scribe were at my direction and personally dictated by me. I have reviewed the chart and agree that the record accurately reflects my personal performance of the history, physical exam, medical decision making, and the department course for this patient. I have also personally directed, reviewed, and agree with the discharge instructions and disposition.
[2018-08-19 16:54] VITALS: BP 109/74; PULSE 79; RESP 16; TEMP 98.1; O2SAT 96
== END 2018-08-19 17:05 | disposition home or self-care (01) ==
LOC: C.ER 16:13
DX: F10.10 Alcohol abuse, uncomplicated (principal); Y90.9 Presence of alcohol in blood, level not specified